=== PATIENT | female | born 1985 | race American Indian/Alaskan Native ===

== ENCOUNTER 2019-11-10 07:22 | Emergency (ER) | payer MEDICAID ==
[2019-11-10 08:43] LABS: Basophils % (Auto) 0.5 % (0.0-1.8); Eosinophils # (Auto) 0.2 K/mm3 (0.0-0.4); Eosinophils % (Auto) 2.7 % (0.0-4.3); Hematocrit 34.7 % (30.3-42.9); Lymphocytes # (Auto) 1.8 K/mm3 (1.2-5.4); Lymphocytes % (Auto) 20.3 % (13.4-35.0); Mean Corpuscular HGB Conc 35 % (30-34); Mean Corpuscular Volume 72 fl (79-97); Monocytes # (Auto) 0.7 K/mm3 (0.0-0.8); Monocytes % (Auto) 8.2 % (0.0-7.3); Platelet Count 284 K/mm3 (140-440); Red Blood Count 4.82 M/mm3 (3.65-5.03); Red Cell Distribution Width 18.3 % (13.2-15.2)
[2019-11-10 09:05] LABS: Alanine Aminotransferase 18 units/L (7-56); Albumin 3.9 g/dL (3.9-5); Blood Urea Nitrogen 13 mg/dL (7-17); Calcium 9.4 mg/dL (8.4-10.2); Hemolysis Index 4
[2019-11-10 09:06] LABS: BUN/Creatinine Ratio 22
[2019-11-10] MEDS ORDERED: LIDOCAINE VISCOUS 2% 15 ML ORAL LIQD PO ONE (09:19)
[2019-11-10] MEDS ORDERED: ALUM-MAG HYDROXIDE-SIMETHICONE 200-200-20MG/5ML ORAL LIQD 30 ML PO ONE (09:19)
[2019-11-10] MEDS ORDERED: HYOSCYAMINE SUBL 0.125 MG TAB SL ONE (09:19)
--- NOTE | 2019-11-10 09:56 | Emergency Department Report ---
ED Abdominal Pain HPI - General Chief Complaint: Abdominal Pain Stated Complaint: ABD PAIN Time Seen by Provider: 11/10/19 08:18 Source: patient Mode of arrival: Ambulatory Limitations: No Limitations - History of Present Illness Initial Comments: Patient is a 34-year-old female presents emergency room with complaints of upper abdominal pain that began around 5 AM this morning. She states that she feels a burning sensation. Patient states that she did eat barbecue last night. She states that she has associated nausea and had one episode of vomiting. She is able to tolerate p.o. intake. She denies any diarrhea, fever, urinary symptoms, hematochezia, hematemesis, melena. Patient states that she just began taking Pepcid but it has only been 2 weeks. She states that she had a upper EGD performed which she reports was normal. She denies any sick contacts or recent travel. She has a past medical history of diverticulitis. Allergy to vanc omycin. She states that her last menstrual cycle was on 11/06/2019. Severity scale (0 -10): 10 - Related Data Previous Rx's Medication Instructions Recorded Last Taken Type Mag Hydrox/Aluminum Hyd/Simeth 10 ml PO Q8HR PRN #1 bottle 11/10/19 Unknown Rx [Mylanta Maximum Strength Liq] Sucralfate [Carafate] 1 gm PO ACHS 7 Days #21 tablet 11/10/19 Unknown Rx Allergies Allergy/AdvReac Type Severity Reaction Status Date / Time vancomycin Allergy Hives Verified 11/10/19 07:26 ED Review of Systems ROS: Stated complaint: ABD PAIN Other details as noted in HPI Comment: All other systems reviewed and negative ED Past Medical Hx - Past Medical History Additional medical history: DIVERTICULITIS - Surgical History Additional Surgical History: C SECTION X 2 - Social History Smoking Status: Current Every Day Smoker Substance Use Type: None - Medications Home Medications: Home Medications Medication Instructions Recorded Confirmed Last Taken Type Mag Hydrox/Aluminum Hyd/Simeth 10 ml PO Q8HR PRN #1 bottle 11/10/19 Unknown Rx [Mylanta Maximum Strength Liq] Sucralfate [Carafate] 1 gm PO ACHS 7 Days #21 tablet 11/10/19 Unknown Rx ED Physical Exam - General Limitations: No Limitations General appearance: alert, in no apparent distress - Head Head exam: Present: atraumatic, normocephalic - Eye Eye exam: Present: normal appearance - ENT ENT exam: Present: mucous membranes moist - Respiratory Respiratory exam: Present: normal lung sounds bilaterally. Absent: respiratory distress, wheezes, rales, rhonchi, stridor, chest wall tenderness, accessory muscle use, decreased breath sounds, prolonged expiratory - Cardiovascular Cardiovascular Exam: Present: regular rate, normal rhythm, normal heart sounds. Absent: systolic murmur, diastolic murmur, rubs, gallop - GI/Abdominal GI/Abdominal exam: Present: soft, tenderness (mild LUQ), normal bowel sounds. Absent: distended, guarding, rebound, rigid - Neurological Exam Neurological exam: Present: alert, oriented X3 - Psychiatric Psychiatric exam: Present: normal affect, normal mood - Skin Skin exam: Present: warm, dry, intact ED Course Vital Signs 11/10/19 11/10/19 07:31 10:06 Temperature 98 F Pulse Rate 65 58 L Respiratory 18 Rate Blood Pressure 123/88 Blood Pressure 149/103 [Right] O2 Sat by Pulse 98 100 Oximetry ED Medical Decision Making - Lab Data Result diagrams: 11/10/19 08:30 11/10/19 08:30 Lab Results 11/10/19 11/10/19 11/10/19 Range/Units 08:30 08:30 08:30 WBC 8.6 (4.5-11.0) K/mm3 RBC 4.82 (3.65-5.03) M/mm3 Hgb 12.0 (10.1-14.3) gm/dl Hct 34.7 (30.3-42.9) % MCV 72 L (79-97) fl MCH 25 L (28-32) pg MCHC 35 H (30-34) % RDW 18.3 H (13.2-15.2) % Plt Count 284 (140-440) K/mm3 Lymph % (Auto) 20.3 (13.4-35.0) % Runnels % (Auto) 8.2 H (0.0-7.3) % Eos % (Auto) 2.7 (0.0-4.3) % Baso % (Auto) 0.5 (0.0-1.8) % Lymph # 1.8 (1.2-5.4) K/mm3 Runnels # 0.7 (0.0-0.8) K/mm3 Eos # 0.2 (0.0-0.4) K/mm3 Baso # 0.0 (0.0-0.1) K/mm3 Seg Neutrophils % 68.3 (40.0-70.0) % Seg Neutrophils # 5.9 (1.8-7.7) K/mm3 Sodium 139 (137-145) mmol/L Potassium 4.0 (3.6-5.0) mmol/L Chloride 103.5 (98-107) mmol/L Carbon Dioxide 25 (22-30) mmol/L Anion Gap 15 mmol/L BUN 13 (7-17) mg/dL Creatinine 0.6 (0.6-1.2) mg/dL Estimated GFR > 60 ml/min BUN/Creatinine Ratio 22 % Glucose 104 H (65-100) mg/dL Calcium 9.4 (8.4-10.2) mg/dL Total Bilirubin < 0.20 (0.1-1.2) mg/dL AST 16 (5-40) units/L ALT 18 (7-56) units/L Alkaline Phosphatase 57 (35-129) units/L Total Protein 6.9 (6.3-8.2) g/dL Albumin 3.9 (3.9-5) g/dL Albumin/Globulin Ratio 1.3 % Lipase 22 (13-60) units/L HCG, Qual Negative (Negative) Vital Signs 11/10/19 11/10/19 07:31 10:06 Temperature 98 F Pulse Rate 65 58 L Respiratory 18 Rate Blood Pressure 123/88 Blood Pressure 149/103 [Right] O2 Sat by Pulse 98 100 Oximetry - Medical Decision Making Patient is a 34-year-old female presents emergency room with complaints of upper abdominal pain that began around 5 AM this morning. She states that she feels a burning sensation. Patient states that she did eat barbecue last night. She states that she has associated nausea and had one episode of vomiting. She is able to tolerate p.o. intake. She denies any diarrhea, fever, urinary symptoms, hematochezia, hematemesis, melena. Patient states that she just began taking Pepcid but it has only been 2 weeks. She states that she had a upper EGD performed which she reports was normal. She denies any sick contacts or recent travel. She has a past medical history of diverticulitis. Allergy to vancomycin. She states that her last menstrual cycle was on 11/06/2019. initial vitals with elevated BP which improved to normal on repeat, otherwise vitals stable. on exam: mild LUQ ttp, no guarding, no rebound, no rigidity, normal bowel sounds, no peritoneal signs. labs are normal, hcg is negative. pt given GI cocktail and symptoms completely improved. symptoms most likely related to GERD as she has a burning sensation after eating BBQ last night. do not suspect acute emergent intraabdominal pathology at this time, no significant abd ttp on exam, no leukocytosis, no n/v/d, no fever, having normal BMs. pt given prescription for carafate and mylanta. advised pt Please take medication as prescribed. Please continue taking your Pepcid, it takes approximately 12 weeks for it to reach its full potential. Increase your water intake. Please follow the diet for acid reflux and ulcers. Follow-up with a primary care doctor. Follow-up with a GI doctor. Return to emergency room for any new or worsening symptoms. - Differential Diagnosis GERD, PUD, gas pain, gastritis, pancreatitis, cholecystitis, colitis, SBO Critical care attestation.: If time is entered above; I have spent that time in minutes in the direct care of this critically ill patient, excluding procedure time. ED Disposition Clinical Impression: Nausea Abdominal pain Qualifiers: Abdominal location: left upper quadrant Qualified Code(s): R10.12 - Left upper quadrant pain GERD (gastroesophageal reflux disease) Qualifiers: Esophagitis presence: without esophagitis Qualified Code(s): K21.9 - Gastro- esophageal reflux disease without esophagitis Disposition: - TO HOME OR SELFCARE Is pt being admited?: No Does the pt Need Aspirin: No Condition: Stable Instructions: Diet for Ulcers and Gastritis (ED), Gastroesophageal Reflux Disease (ED), Abdominal Pain (ED) Additional Instructions: Please take medication as prescribed. Please continue taking your Pepcid, it takes approximately 12 weeks for it to reach its full potential. Increase your water intake. Please follow the diet for acid reflux and ulcers. Follow-up with a primary care doctor. Follow-up with a GI doctor. Return to emergency room for any new or worsening symptoms. Prescriptions: Sucralfate [Carafate] 1 gm PO ACHS 7 Days #21 tablet Mag Hydrox/Aluminum Hyd/Simeth [Mylanta Maximum Strength Liq] 10 ml PO Q8HR PRN #1 bottle PRN Reason: acid reflux/burning sensation Referrals: LANG TORRES FNP [Primary Care Provider] - 2-3 Days your, GI doctor [Other] - 2-3 Days Time of Disposition: 09:54 Print Language: DANISH
[2019-11-10 10:22] VITALS: BP 123/88
== END 2019-11-10 10:07 | disposition home or self-care (01) ==
LOC: ED 07:22
DX: K21.9 Gastro-esophageal reflux disease without esophagitis (principal); F17.200 Nicotine dependence, unspecified, uncomplicated; Z98.890 Other specified postprocedural states; Z88.1 Allergy status to other antibiotic agents
CPT/HCPCS: 36415; 80053; 83690; 84703; 85025; 99283

== ENCOUNTER 2019-11-27 15:06 | Emergency (ER) | payer MEDICAID ==
[2019-11-27 15:26] VITALS: BP 144/78
[2019-11-27 16:12] LABS: Hematocrit 40.1 % (30.3-42.9); Hemoglobin 12.8 gm/dl (10.1-14.3); Mean Corpuscular HGB Conc 32 % (30-34); Mean Corpuscular Volume 73 fl (79-97); Platelet Count 368 K/mm3 (140-440); Red Blood Count 5.49 M/mm3 (3.65-5.03); Red Cell Distribution Width 18.1 % (13.2-15.2)
[2019-11-27 16:34] LABS: Alanine Aminotransferase 18 units/L (7-56); Albumin 4.3 g/dL (3.9-5); Blood Urea Nitrogen 9 mg/dL (7-17); Calcium 9.4 mg/dL (8.4-10.2); Hemolysis Index 6
[2019-11-27 16:36] LABS: BUN/Creatinine Ratio 15
[2019-11-27 17:12] LABS: Basophils % (Manual) 0 % (0.0-1.8); Hypochromasia 1+; Large Platelets Few; Ovalocytes Few; Platelet Estimate Cons; Target Cells Rare; Total Cells Counted 100
== END 2019-11-27 17:01 | disposition left against medical advice (07) ==
LOC: ED 15:06
DX: R10.9 Unspecified abdominal pain (principal); Z53.21 Procedure and treatment not carried out due to patient leaving prior to being seen by health care provider
CPT/HCPCS: 36415; 80053; 84703; 85007; 85025